=== PATIENT | male | born 1950 | race Caucasian/White ===

== ENCOUNTER 2022-11-06 11:29 | Inpatient (IN) | payer OTHER ==
[~2022-11-06] VITALS: Ht 180.3 cm; Wt 143.2 kg
[2022-11-06 11:40] VITALS: BP_SYST 166
--- NOTE | 2022-11-06 11:50 | NUR ---
PT BIB AWAKE AND ALERT, AOX4. PT C/O SOB FOR X7 DAYS, AND EDEMAS TO LOWER EXTREMITIES. PT STATES PAIN 4/10. PT DENIES N/V. PT HAS HX OF CHF HDL, PRE DM2, A-FIB.
--- NOTE | 2022-11-06 11:55 | NUR ---
MD DR NIEVES AT BEDSIDE
[2022-11-06 12:40] LABS: BASOPHILS # (AUTO) 0.1 K/uL (0.0-0.2); BASOPHILS % (AUTO) 0.9 % (0.0-2.0); EOSINOPHILS # (AUTO) 0.1 K/uL (0.0-0.4); EOSINOPHILS % (AUTO) 1.9 % (0.0-4.0); HEMATOCRIT 39.3 % (36-54); LYMPHOCYTES # (AUTO) 0.6 K/uL (1.0-5.5); LYMPHOCYTES % (AUTO) 8.6 % (20.5-51.5); MEAN CORPUSCULAR HEMOGLOBIN 31 pg (27-31); MEAN CORPUSCULAR HGB CONC 33 % (32-36); MEAN CORPUSCULAR VOLUME 92 fL (79.0-98.0); MONOCYTES # (AUTO) 0.7 K/uL (0.0-1.0); MONOCYTES % (AUTO) 9.7 % (1.7-9.3); NEUTROPHILS # (AUTO) 5.3 K/uL (1.8-7.7); NEUTROPHILS % (AUTO) 78.9 % (40.0-70.0); PLATELET COUNT (AUTO) 154 K/uL (130-430); RED BLOOD CELL COUNT(AUTO) 4.25 MIL/uL (4.2-6.2); RED CELL DISTRIBUTION WIDTH 14.1 % (9.0-15.0); WHITE BLOOD COUNT (AUTO) 6.7 K/uL (4.8-10.8)
[2022-11-06 12:59] LABS: ANION GAP 7 (5-15); CHLORIDE 106 mmol/L (98-107); CREATININE 0.86 mg/dL (0.55-1.30); GLUCOSE 94 mg/dL (70-99); UREA NITROGEN, BLOOD 19 mg/dL (8-21)
[2022-11-06 13:02] LABS: GFR AFRICAN AMERICAN 113 mL/min (>90)
[2022-11-06 13:06] LABS: ALANINE AMINOTRANSFERASE 33 U/L (12-78); ALBUMIN 3.4 g/dL (3.4-4.8); ASPARTATE AMINOTRANSFERASE 16 U/L (10-37); TOTAL BILIRUBIN 0.7 mg/dL (0.0-1.0)
[2022-11-06] MEDS ORDERED: FUROSEMIDE 40 MG/4 ML VIAL IVP ONE (16:00)
--- NOTE | 2022-11-06 16:00 | NUR ---
REPORT GIVEN TO TK FUENTES FOR RESUMPTION OF CARE
[2022-11-06] MEDS ORDERED: FUROSEMIDE 20 MG/2 ML VIAL ONE ×2 (19:27→19:30)
--- NOTE | 2022-11-06 21:32 | NUR ---
pT ALERT ORIENT X4, vss, n O SIGNS OF ACUTE DISTRESS.
--- NOTE | 2022-11-06 21:55 | NUR ---
Pt had urine output of 800 mL since 1500
[2022-11-06] MEDS ORDERED: FINA5TAB11 PO (23:26)
[2022-11-06] MEDS ORDERED: CARV3.1246 PO (23:26)
[2022-11-06] MEDS ORDERED: LOSA50TA3 PO (23:26)
[2022-11-06] MEDS ORDERED: TERA10CA4 PO (23:26)
[2022-11-06] MEDS ORDERED: FURO40SO5 PO (23:26)
[2022-11-06] MEDS ORDERED: SIMV40TA2 PO (23:29)
[2022-11-06] MEDS ORDERED: PRED5TAB PO (23:36)
[2022-11-06] MEDS ORDERED: POTA-195 PO (23:36)
--- NOTE | 2022-11-07 00:57 | NUR ---
Patient will be admitted to care of . Admitted to Tele unit. Will go to room 124B Belongings list completed. Complete and up to date summary report printed. SBAR report to be given at bedside with opportunity for questions.
--- NOTE | 2022-11-07 01:12 | NUR ---
Admission Note Received patient from ER with diagnosis of ATRIAL FIBRILLATION. Initial Plan of Care discussed-patient verbalized understanding. Oriented to room, call light, pain management and safety.
--- NOTE | 2022-11-07 01:47 | NUR ---
ADMISSION ASSESSMENT NOTES; pt. admitted from ER by nurse Dickson. pt. awake, alert and oriented with DX CHF exacerbation, c/o shortness of breath x 2 weeks. oriented to room , use of call light. placed on registered medical transcriptionist. call light at bedside.
--- NOTE | 2022-11-07 02:24 | NUR ---
NOTES: pt. asking if he can have his Terazosin for last night dose, called exchange and Dr. Noble trade economist for Dr. Mueller.
--- NOTE | 2022-11-07 04:16 | NUR ---
NOTES: Dr. Noble never return the call. pt. sleeping and repositioned self. monitoring engineer shows atrial fib controlled rate. IV lock on left arm. call light at bedside.
[2022-11-07 05:35] VITALS: BP_SYST 149
--- NOTE | 2022-11-07 06:30 | NUR ---
CLOSING NOTES; STILL SLEEP. NO COMPLAINTS MANIFESTED. FOR FURTHER CARE AND OBSERVATION. WILL ENDORSE TO INCOMING SHIFT.
--- NOTE | 2022-11-07 08:00 | NUR ---
Initial notes Received patient AAOx4, no c/o pain /SOB, no signs of distress.. IV to left forearm patent. all safety secure , continue to monitor
[2022-11-07 08:07] VITALS: BP_SYST 185
--- NOTE | 2022-11-07 08:45 | NUR ---
CONSULTATION PAGED7 REASON FOR CONSULTATION:AFIB, CHF WAS CONSULT CALLED?Y PERSON WHO WAS NOTIFIED:FELIPE CONSULTING PHYSICIAN:YOVANI ANN BIOMETRICS ANALYST SPECIALTY:CARDIO BIOMETRICS ANALYST PHONE NUMBER:[phone] REQUESTING PHYSICIAN:ERIC POWELL
[2022-11-07] MEDS ORDERED: FUROSEMIDE 20 MG/2 ML VIAL IVP SCH (09:00)
--- NOTE | 2022-11-07 10:00 | NUR ---
New IV saline to right forearm #20g IV saline to left forearm infiltrate, discontinued with catheter intact
[2022-11-07 12:00] VITALS: BP_SYST 156
[2022-11-07] MEDS: ceFAZolin SODIUM 1 GM in D5W 100 ML IV SCH ×2 (14:21→23:00)
[2022-11-07 16:00] VITALS: BP_SYST 148
--- NOTE | 2022-11-07 18:00 | NUR ---
Wound culture sent to lab
--- NOTE | 2022-11-07 18:10 | NUR ---
Wound care Open wound to left lateral foot clean w/normal saline pat dry applied OptiForm
[2022-11-07] MEDS: RIVAROXABAN 10 MG TABLET PO SCH (18:36)
[2022-11-07] MEDS: VANCOMYCIN HCL 1,250 MG in NS 250 ML IV SCH (18:40)
--- NOTE | 2022-11-07 18:45 | NUR ---
Patient resting in bed, no signs of SOB/distress, IV site patent , all safety secured, bed in low position and call light w/in reached
[2022-11-07 20:30] VITALS: BP_SYST 137
[2022-11-07] MEDS ORDERED: CARVEDILOL 3.125 MG TABLET (COREG) PO SCH (21:00)
[2022-11-07] MEDS: CARVEDILOL 25 MG TABLET (COREG) PO SCH (22:58)
[2022-11-07] MEDS: TERAZOSIN HCL 5 MG CAPSULE (HYTRIN) PO SCH (22:58)
--- NOTE | 2022-11-07 23:45 | NUR ---
ASSIST out of bed for use of urinal FALL RISK back to bed patient alert call edwards given to patient / .
[2022-11-07 23:56] VITALS: BP_SYST 145
--- NOTE | 2022-11-08 00:05 | NUR ---
culture of left lower leg wound sent to lab .
--- NOTE | 2022-11-08 03:59 | NUR ---
Hourly Rounding patient Resting is verbally Responsive no adverse Reaction to VANCOMYCIN skin dry warm chest movement symmetrical / .
[2022-11-08] MEDS: ceFAZolin SODIUM 1 GM in D5W 100 ML IV SCH ×3 (06:13→21:37)
[2022-11-08] MEDS: VANCOMYCIN HCL 1,250 MG in NS 250 ML IV SCH ×2 (06:14→17:22)
[2022-11-08 08:00] VITALS: BP_SYST 149
--- NOTE | 2022-11-08 08:00 | NUR ---
Initial notes Received patient AAOx4, no c/o pain /SOB, no signs of distress.. IV to left forearm patent. all safety secure , continue to monitor
[2022-11-08] MEDS: FUROSEMIDE 20 MG/2 ML VIAL IVP SCH (08:16)
[2022-11-08] MEDS: SIMVASTATIN 40 MG TABLET PO SCH (08:16)
[2022-11-08] MEDS: predniSONE 5 MG TABLET PO SCH (08:17)
[2022-11-08] MEDS: FINASTERIDE 5 MG TABLET (PROSCAR) PO SCH (08:17)
[2022-11-08] MEDS: LOSARTAN POTASSIUM 50 MG TABLET (COZAAR) PO SCH (08:17)
[2022-11-08] MEDS: CARVEDILOL 25 MG TABLET (COREG) PO SCH ×2 (08:18→21:37)
[2022-11-08 08:20] LABS: BASOPHILS % (AUTO) 0.6 % (0.0-2.0); EOSINOPHILS # (AUTO) 0.1 K/uL (0.0-0.4); EOSINOPHILS % (AUTO) 0.8 % (0.0-4.0); HEMATOCRIT 38.6 % (36-54); HEMOGLOBIN 12.9 g/dL (14.0-18.0); LYMPHOCYTES # (AUTO) 0.7 K/uL (1.0-5.5); LYMPHOCYTES % (AUTO) 9.6 % (20.5-51.5); MEAN CORPUSCULAR HEMOGLOBIN 31 pg (27-31); MEAN CORPUSCULAR HGB CONC 34 % (32-36); MEAN CORPUSCULAR VOLUME 93 fL (79.0-98.0); MONOCYTES % (AUTO) 14.1 % (1.7-9.3); NEUTROPHILS # (AUTO) 5.4 K/uL (1.8-7.7); NEUTROPHILS % (AUTO) 74.9 % (40.0-70.0); PLATELET COUNT (AUTO) 154 K/uL (130-430); RED BLOOD CELL COUNT(AUTO) 4.16 MIL/uL (4.2-6.2); RED CELL DISTRIBUTION WIDTH 14.4 % (9.0-15.0); WHITE BLOOD COUNT (AUTO) 7.2 K/uL (4.8-10.8)
[2022-11-08 10:05] LABS: ALBUMIN 3.1 g/dL (3.4-4.8); CALCIUM 8.7 mg/dL (8.4-11.0); CREATININE 0.84 mg/dL (0.55-1.30); THYROID STIMULATING HORMONE 0.61 uIu/mL (0.34-4.82); TOTAL BILIRUBIN 0.8 mg/dL (0.0-1.0)
[2022-11-08 12:00] VITALS: BP_SYST 147
[2022-11-08] MEDS ORDERED: HONEY WOUND DRESSING 1 EACH TP ONE (15:30)
--- NOTE | 2022-11-08 15:30 | NUR ---
MRSA screen sent to lab
--- NOTE | 2022-11-08 15:35 | NUR ---
New saline lock left forearm, Right saline lock infiltrate, discontinued with catheter intact
[2022-11-08 16:51] VITALS: BP_SYST 148
--- NOTE | 2022-11-08 17:30 | NUR ---
WOUND EVALUATION: Late note for 11/08/2022 at 1730 secondary to patient care. Wound Consult received from Dr. York. Thank you, Dr. York, for the consult. Patient received in a [place] Bed with an IsoFlex GERRI mattress, awake, alert, and oriented. Patient is able to turn independently. Ranjit Score is an 18. 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 Recent Labs: WBC 7.2, RBC 4.16, hemoglobin 12.9, hematocrit 38.6, glucose 122, serum total protein 6.3, albumin 3.1. Microbiology: Blood culture results x2 in progress. MRSA screen results in progress. Wound culture results in progress. Intrinsic factors that delay wound healing: CHF, Hypoalbuminemia. Extrinsic factors that delay wound healing: Decreased mobility. Per assessment by Dr. Sands: Chronic Atrial fibrillation with RVR, Acute on Chronic CHF exacerbation (likely systolic), left leg wound/cellulitis, Hypertension, and Fibromyalgia. Wound Assessment: 1. Left Distal 1/3 of Lower Extremity, Lateral/Posterior Aspect: Wound, present on admission. Wound bed has 95% yellow tissue, 5% red tissue. No odor, scant yellow drainage. Periwound intact. Surrounding tissue has mild induration. Wound measures 1.5 cm x 1.7 cm. Recommend: Cleanse wound with normal saline. Apply sure prep to leena-wound. Apply Hydrogel to wound bed. Cover wound bed with Therahoney sheet, cut to size. Apply Hydrogel to Therahoney sheet. Cover with foam dressing. Perform wound care daily, and as needed for dressing soiling or dislodgement. Also recommend: Encourage and assist patient as needed with repositioning every 2 hours with pillow support and off-load pressure areas with pillows for pressure re-distribution. Offload, elevate and float bilateral heels with pillows. Elevate bilateral lower extremity above heart as tolerated. Perform skin care and monitor skin integrity Q shift. Encourage 1030 ankle pumps per hour to help decrease edema.
[2022-11-08] MEDS: RIVAROXABAN 10 MG TABLET PO SCH (17:52)
--- NOTE | 2022-11-08 19:33 | NUR ---
Closing Patient resting in bed ,no c/o pain at this time, no change in condition will endorse
[2022-11-08 19:35] VITALS: BP_SYST 145
--- NOTE | 2022-11-08 19:35 | NUR ---
INITIAL NOTE AT INITIAL ASSESSMENT, PATIENT IS RESTING IN BED, STABLE, NO SIGNS OF RESPIRATORY DISTRESS. PATIENT VERBALIZES NO PAIN. PLAN OF CARE FOR THE EVENING IS COMMUNICATED WITH THE PATIENT. PATIENT DEMONSTRATES CORRECT USAGE OF CALL LIGHT AT THIS TIME. BED IS LOCKED, ALARMED, AND AT THE LOWEST LEVEL. FALL, SAFETY, AND RESPIRATORY PRECAUTIONS WILL BE TAKEN THROUGHOUT THE SHIFT.
[2022-11-08] MEDS: TERAZOSIN HCL 5 MG CAPSULE (HYTRIN) PO SCH (21:37)
[2022-11-08] MEDS: ACETAMINOPHEN 500 MG TABLET PO PRN (21:45)
--- NOTE | 2022-11-08 21:45 | NUR ---
PAIN NOTE PATIENT VERBALIZES MODERATE PAIN OF HIS BLE. PRN MEDICATION FOR MODERATE PAIN GIVEN AT THIS TIME PER MD ORDERS.
[2022-11-09] VITALS: BP_SYST 138
[2022-11-09] MEDS: ceFAZolin SODIUM 1 GM in D5W 100 ML IV SCH ×2 (04:58→13:38)
[2022-11-09] MEDS: VANCOMYCIN HCL 1,250 MG in NS 250 ML IV SCH ×2 (06:00→17:44)
--- NOTE | 2022-11-09 06:45 | NUR ---
CLOSING NOTE PATIENT SLEPT WELL THROUGHOUT THE NIGHT. HE WAS ABLE TO MANEUVER FROM SITTING UPRIGHT AT SIDE OF BED, AND BACK INTO BED TO SLEEP WITHOUT ASSISTANCE NECESSARY. AT THIS TIME, PATIENT IS RESTING IN BED, STABLE, NO SIGNS OF RESPIRATORY DISTRESS. CALL LIGHT IS WITHIN REACH. BED IS LOCKED, ALARMED, AND AT THE LOWEST LEVEL. FALL, SAFETY, AND RESPIRATORY PRECAUTIONS HAVE BEEN TAKEN THROUGHOUT THE SHIFT.
--- NOTE | 2022-11-09 07:20 | NUR ---
OPENING NOTE; PT RESTING IN BED, BREATHING NON-LABORED AND REGULAR. IV SITE REMAIN INTACT AND CLEAN. NO IV INFILTRATION OR INFECTION NOTED. BED IS LOCKED AND AT LOW POSITION. ENCOURAGED TO USE CALL LIGHT FOR ASSISTANCE. SAFETY PRECAUTION IN PLACE. WILL CONT TO MONITOR
[2022-11-09 08:00] VITALS: BP_SYST 129
[2022-11-09] MEDS: FUROSEMIDE 20 MG/2 ML VIAL IVP SCH (08:27)
[2022-11-09] MEDS: LOSARTAN POTASSIUM 50 MG TABLET (COZAAR) PO SCH (08:28)
[2022-11-09] MEDS: CARVEDILOL 25 MG TABLET (COREG) PO SCH ×2 (08:28→20:48)
[2022-11-09] MEDS: SIMVASTATIN 40 MG TABLET PO SCH (08:29)
[2022-11-09] MEDS: FINASTERIDE 5 MG TABLET (PROSCAR) PO SCH (08:29)
[2022-11-09] MEDS: predniSONE 5 MG TABLET PO SCH (08:29)
[2022-11-09] MEDS ORDERED: HONEY WOUND DRESSING 1 EACH TP SCH (09:00)
[2022-11-09] MEDS: ACETAMINOPHEN 500 MG TABLET PO PRN ×2 (09:17→20:50)
--- NOTE | 2022-11-09 09:30 | NUR ---
WOUND CARE; PROVIDED WOUND CARE, SEE [facility] SHIFT ASSESSMENT FOR DETAIL.
--- NOTE | 2022-11-09 09:40 | NUR ---
Nutrition Consult RD received Nutrition Consult d/t LLE Cellulitis w/ Wound 11/08/22 2832. Pt was seen and assessed by real estate internship under the direction of RD. Please refer to Nutrition Assessment for details. RD to F/U as per nutrition care standards.
--- NOTE | 2022-11-09 09:41 | NUR ---
Dietitian Recommendations * Continue Cardiac Diet. * RD noted: Sotero BID for wound healing in left leg (provides 180 kcals, 5 gm PRO per day). Co-Signed By: Bing Casiano, MPH, RD Please refer to Nutrition Assessment for details.
[2022-11-09 11:47] VITALS: BP_SYST 118
--- NOTE | 2022-11-09 12:48 | NUR ---
NOTES; PT EATING LUNCH IN BED, SITTING ON THE EDGE OF BED. FAMILY AT BEDSIDE. NO S/S DISTRESS. WILL CONT TO MONITOR
[2022-11-09] MEDS ORDERED: RIVA10TA PO (15:05)
[2022-11-09] MEDS ORDERED: FURO-149 PO (15:05)
[2022-11-09] MEDS ORDERED: COR25 PO (15:05)
--- NOTE | 2022-11-09 15:40 | NUR ---
NOTES; PT TALKING WITH FAMILY MEMBERS OVER THE PHONE. NO S/S PAIN OR DISCOMFORT. SAFETY PRECAUTION IN PLACE. WILL CONT TO MONITOR
[2022-11-09 17:04] VITALS: BP_SYST 147
[2022-11-09 17:13] VITALS: BP_SYST 153
[2022-11-09] MEDS: RIVAROXABAN 10 MG TABLET PO SCH (17:45)
--- NOTE | 2022-11-09 19:00 | NUR ---
CLOSING NOTE; IV ANTIBIOTIC RUNNING ORDERED.IV SITE REMAIN PATENT AND CLEAN. NO IV INFILTRATION OR INFECTION NOTED. PT RESTING IN BED, BREATHING NON-LABORED AND REGULAR. BED IS LOCKED AND AT LOW POSITION. ENCOURAGED TO USE CALL LIGHT FOR ASSISTANCE. SAFETY PRECAUTION IN PLACE. WILL ENDORSE CARE TO CIGAR TOBACCO PROCESSING SUPERVISOR NURSE.
[2022-11-09] MEDS: TERAZOSIN HCL 5 MG CAPSULE (HYTRIN) PO SCH (20:49)
--- NOTE | 2022-11-09 21:15 | NUR ---
D/C Patient Patient given medication reconciliation form and D/C instructions. Exit Care provided. Patient verbalized understanding. MD discussed with patient the results and treatment provided. Ambulatory with steady gait for discharge to home. Patient in stable condition, ID band removed. IV catheter removed, intact and dressing applied, no active bleeding. Rx of PATIENT given. Patient educated on pain management. All belongings sent with patient.
== END 2022-11-09 21:11 | disposition home or self-care (01) | DRG 602 ==
LOC: SED 11:29 → STU 16:38
PROVIDERS: ADMIT Specialist; ATTEND Specialist
DX: L03.116 Cellulitis of left lower limb (principal); I50.33 Acute on chronic diastolic (congestive) heart failure; I48.20 Chronic atrial fibrillation, unspecified; L97.929 Non-pressure chronic ulcer of unspecified part of left lower leg with unspecified severity; Z68.41 Body mass index [BMI] 40.0-44.9, adult; I11.0 Hypertensive heart disease with heart failure; N40.0 Benign prostatic hyperplasia without lower urinary tract symptoms; Z96.652 Presence of left artificial knee joint; M19.90 Unspecified osteoarthritis, unspecified site; M35.3 Polymyalgia rheumatica; I87.2 Venous insufficiency (chronic) (peripheral); E66.01 Morbid (severe) obesity due to excess calories; Z20.822 Contact with and (suspected) exposure to COVID-19; Z79.01 Long term (current) use of anticoagulants; Z79.899 Other long term (current) drug therapy; Z87.891 Personal history of nicotine dependence; Z91.119 Patient's noncompliance with dietary regimen due to unspecified reason
CPT/HCPCS: 36415; 71045; 80053; 80061; 80202; 83037; 83735; 83880; 84443; 84484; 85025; 85651-TC; 87040; 87070-TC; 87081; 87186-TC; 93005; 93306; 96374; 96376; 99285; G0378; J1940; J3370; J7050; J7060; J7512